=== PATIENT | male | born 1995 ===

== ENCOUNTER 2017-10-29 14:24 | Emergency (ER) | payer BC, OTHER ==
[2017-10-29 14:24] VITALS: BMI 29.1
[2017-10-29 14:31] VITALS: BP 138/62; PULSE 72; RESP 16; TEMP 96.2; O2SAT 99
--- NOTE | 2017-10-29 16:17 | ED PDOC ---
HPI: General Adult Time Seen by Provider: 10/29/17 14:38 Chief Complaint (Nursing): ENT Problem Chief Complaint (Provider): Right ear discomfort History Per: Patient History/Exam Limitations: no limitations Onset/Duration Of Symptoms: Days (2) Have you had recent travel within the past 21 days to any of the following countries: [place], [place], [place] or [place]?: No Current Symptoms Are (Timing): Still Present Additional History Per: Patient Additional Complaint(s): Patient presents today with complaints of discomfort to his right ear, described as clogging and un-clogging for the past 2 days. Patient denies any associated fever, cough, congestion or other URI symptoms. Past Medical History Reviewed: Historical Data, Nursing Documentation, Vital Signs Vital Signs: Last Vital Signs Temp 96.2 F L 10/29/17 14:30 Pulse 72 10/29/17 14:30 Resp 16 10/29/17 14:30 BP 138/62 10/29/17 14:30 Pulse Ox 99 10/29/17 16:20 - Medical History PMH: No Chronic Diseases - Surgical History Surgical History: No Surg Hx - Family History Family History: States: Unknown Family Hx - Home Medications Home Medications: Ambulatory Orders Medication Instructions Recorded traMADol [Ultram] 50 mg PO TID PRN #15 tab 08/08/16 Naproxen [Naprosyn] 500 mg PO BID PRN #20 tablet 10/16/16 Amoxicillin/Clavulanate [Augmentin 1 tab PO BID 10 Days tab 11/21/16 875 MG-125 MG] Fluticasone Nasal [Flonase] 1 actuation NS DAILY #1 spr 11/21/16 Ibuprofen [Motrin Tab] 600 mg PO Q6 #30 tab 11/21/16 Carbamide Peroxide [Debrox] 5 drop AD BID #1 each 10/29/17 - Allergies Allergies/Adverse Reactions: Allergies Allergy/AdvReac Type Severity Reaction Status Date / Time No Known Allergies Allergy Verified 10/16/16 10:23 Review of Systems ROS Statement: Except As Marked, All Systems Reviewed And Found Negative Constitutional: Negative for: Fever, Chills ENT: Positive for: Ear Pain (right ear discomfort). Negative for: Ear Discharge Respiratory: Negative for: Cough, Shortness of Breath Physical Exam - Reviewed Nursing Documentation Reviewed: Yes Vital Signs Reviewed: Yes - Physical Exam Comments: GENERAL APPEARANCE: Patient is awake, alert, oriented x 3, in no acute distress. SKIN: Warm, dry; (-) cyanosis. ENMT: Canals : (+) cerumen impaction right ear, TM (-) visible, other ear normal. Frontal / maxillary sinuses : (-) tenderness. (-) TMJ tenderness. Pharynx: Clear; (-) erythema, (-) exudate. Airway patent: (-) stridor. NECK: (-) stiffness, (-) tenderness, (-) lymphadenopathy. LUNGS: clear, (-) wheezing, (-) rhonchi. CARDIAC: RRR, (-) murmurs, (-) gallops. - ECG O2 Sat by Pulse Oximetry: 99 (RA) Pulse Ox Interpretation: Normal Medical Decision Making Medical Decision Making: Impression: Right ear discomfort Plan: -- Based on history and exam, plan will be for discharge home with outpatient ENT follow-up. Advised to follow up with ENT referral in 1-2 days without fail. Advised to take medication as prescribed. Return to the emergency room at any time for any new or worsening symptoms. Patient states he fully agrees with and understands discharge instructions. States that he agrees with the plan and disposition. Verbalized and repeated discharge instructions and plan. I have given the patient opportunity to ask any additional questions. Scribe Attestation: Documented by Yael Simmons acting as a scribe for ERIK Layne. Provider Scribe Attestation: All medical record entries made by the Scribe were at my direction and personally dictated by me. I have reviewed the chart and agree that the record accurately reflects my personal performance of the history, physical exam, medical decision making, and the department course for this patient. I have also personally directed, reviewed, and agree with the discharge instructions and disposition. Disposition - Clinical Impression Clinical Impression: Cerumen impaction - Patient ED Disposition Is Patient to be Admitted: No Counseled Patient/Family Regarding: Diagnosis, Need For Followup, Rx Given - Disposition Referrals: Bakari Thompson MD [Staff Provider] - Disposition: Routine/Home Disposition Time: 15:40 Condition: STABLE Additional Instructions: Thank you for letting us take care of you today. You were treated for cerumen impaction. The emergency medical care you received today was directed at your acute symptoms. If you were prescribed any medication, please fill it and take as directed. It may take several days for your symptoms to resolve. Return to the Emergency Department if your symptoms worsen, do not improve, or if you have any other problems. Please call one of the physicians/clinics you have been referred to that are listed on the Patient Visit Information form that is included in your discharge packet. Bring any paperwork you were given at discharge with you along with any medications you are taking to your follow up visit. Our treatment cannot replace ongoing medical care by a primary care provider (PCP) outside of the emergency department. Thank you for allowing the [facility] team to be part of your care today. 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
== END 2017-10-29 15:50 | disposition home or self-care (01) ==
LOC: H.ER 14:24
DX: H61.21 Impacted cerumen, right ear (principal)